=== PATIENT | female | born 1955 | race American Indian/Alaskan Native ===

== ENCOUNTER 2017-08-10 13:31 | Outpatient (CLI) | payer MEDICARE ==
--- NOTE | 2017-08-10 14:57 | Mammography Report ---
Screening mammogram: Routine views compared to prior exam in 2016. Mild architectural distortion related to prior surgery identified in the superior right breast. The breast pattern otherwise is adequately intermediate fibroglandular density in a symmetric pattern. No suspicious distortion, mass, or calcifications identified. No interval change compared to prior exam. CAD used. Impression: Stable exam. Recommendation: Ankle mammogram followup. BI-RADS CATEGORY: 1 = Negative ACR BI-RADS MAMMOGRAPHIC CODES: 0 = Needs additional imaging evaluation; 1 = Negative; 2 = Benign; 3 = Probably benign; 4 = Suspicious; 5 = Malignant; 6 = Known biopsy-proven malignancy COMMENT: 1. Dense breast tissue, i.e., adenosis, fibrocystic changes, etc., may obscure an underlying neoplasm. 2. Approximately 10% of cancers are not detected with mammography. 3. A negative mammography report should not delay biopsy if a clinically suspicious mass is present.
== END 2017-08-10 13:32 | disposition home or self-care (01) ==
LOC: SPVWC 13:31
PROVIDERS: ATTEND Obstetrics & Gynecology
DX: Z12.31 Encounter for screening mammogram for malignant neoplasm of breast (principal)
CPT/HCPCS: 77067; G0202

== ENCOUNTER 2022-04-08 14:24 | Outpatient (CLI) | payer MEDICARE ==
--- NOTE | 2022-04-10 10:21 | Mammography Report ---
DIGITAL SCREENING MAMMOGRAM WITH CAD, 04/08/2022 CLINICAL INFORMATION / INDICATION: Routine screening mammography. SCREENING MAMMO TECHNIQUE: Digital bilateral 2D mammography was obtained in the craniocaudal and mediolateral obliqu e projections. This examination was interpreted with the benefit of Computer-Aided Detection analysis . COMPARISON: 08/10/2017 and 06/17/2016 FINDINGS: Breast Density: There are scattered areas of fibroglandular density. No dominant mass, suspicious calcifications, or architectural distortion in either breast. Old scar in the right breast. IMPRESSION: No mammographic evidence of malignancy. Follow up recommendation: Routine yearly screening mammogram. BI-RADS Category 2: BENIGN. A "normal" or negative report should not discourage follow up or biopsy of a clinically significant f inding. A written summary of these findings will be mailed to the patient. The patient will be entered into a mammography reporting system which will generate a reminder letter for the patient's next appointmen t at the appropriate interval. [employer] recommends yearly mammograms starting at age 40 and continuing as l ana as a woman is in good health. Breast MRI is recommended for women with an approximate 20-25% or greater lifetime risk of breast cancer, including women with a strong family history of breast or ova rosario cancer or who have been treated for Hodgkin's disease. Signer Name: Joel Robbins MD Signed: 04/10/2022 10:16 AM Workstation Name: [id number]
== END 2022-04-08 14:25 | disposition home or self-care (01) ==
LOC: SPVWC 14:24
DX: Z12.31 Encounter for screening mammogram for malignant neoplasm of breast (principal)
CPT/HCPCS: 77067